=== PATIENT | male | born 1950 | race Caucasian/White ===

== ENCOUNTER 2025-07-02 06:04 | Day surgery (SDC) | payer MEDICARE ==
[2025-07-02] MEDS: Lactated Ringers 1,000 ML IV SCH (06:51)
[2025-07-02] MEDS ORDERED: Propofol 200 MG/20 ML SDV ONE (07:29)
[2025-07-02] MEDS ORDERED: fentaNYL 50 MCG/ML SDV ONE (07:29)
== END 2025-07-02 09:31 | disposition home or self-care (01) ==
LOC: JP.SDS 06:04
PROVIDERS: ATTEND Surgery
DX: Z12.11 Encounter for screening for malignant neoplasm of colon (principal); K57.30 Diverticulosis of large intestine without perforation or abscess without bleeding; I10 Essential (primary) hypertension; E78.00 Pure hypercholesterolemia, unspecified; Z80.0 Family history of malignant neoplasm of digestive organs; Z88.8 Allergy status to other drugs, medicaments and biological substances; Z91.09 Other allergy status, other than to drugs and biological substances; Z79.899 Other long term (current) drug therapy
CPT/HCPCS: J2704; J3010; J7120